=== PATIENT | female | born 1935 | race Caucasian/White ===

== ENCOUNTER 2024-10-03 15:33 | Emergency (ER) | payer MEDICARE, BC ==
--- NOTE | 2024-10-03 15:53 | ED ---
General Adult HPI - General Stated complaint: rectal issue Time Seen by Provider: 10/03/24 15:34 Source: patient, EMS, RN notes reviewed, old records reviewed Limitations: no limitations - History of Present Illness Initial comments: 89-year-old female was a transfer from outside hospital with rectal prolapse. Patient states she had been constipated for the past 5 days and noted a bulging while trying to defecate today. She had gone to the outside hospital where laboratory testing was obtained including lactic acid which was normal she had an x-ray which was reported as nonobstructive. She had continued prolapse and staff was unable to reduce and sent for further evaluation and treatment. Patient denies any symptoms other than rectal pain and bulging sensation. - Related Data Previous Rx's Medication Instructions Recorded Docusate [Colace] 100 mg PO BID #60 capsule 10/03/24 Allergies Allergy/AdvReac Type Severity Reaction Status Date / Time acetaminophen [From Brandon] Allergy Confusion Verified 10/03/24 15:57 hydrocodone [From Brandon] Allergy Confusion Verified 10/03/24 15:57 hydromorphone [From Dilaudid] Allergy Confusion Verified 10/03/24 15:57 LODINE Allergy Unknown Uncoded 10/03/24 15:57 Review of Systems ROS Statement: Those systems with pertinent positive or pertinent negative responses have been documented in the HPI. ROS Other: All systems not noted in ROS Statement are negative. General Exam General appearance: alert, in no apparent distress Head exam: Present: atraumatic, normocephalic Eye exam: Present: normal appearance, PERRL ENT exam: Present: normal exam Neck exam: Present: normal inspection. Absent: tenderness, meningismus Respiratory exam: Present: normal lung sounds bilaterally. Absent: respiratory distress, wheezes Cardiovascular Exam: Present: regular rate, normal rhythm GI/Abdominal exam: Present: soft. Absent: distended, tenderness, guarding Rectal exam: Present: other (Hyperemic rectal prolapse) Extremities exam: Present: normal inspection Neurological exam: Present: alert, oriented X3, CN II-XII intact. Absent: motor sensory deficit Psychiatric exam: Present: normal affect, normal mood Skin exam: Present: warm, dry, intact Course Vital Signs 10/03/24 15:51 Temperature 98.5 F Pulse Rate 82 Respiratory 18 Rate Blood Pressure 124/59 O2 Sat by Pulse 99 Oximetry Procedures - Rectal Disimpaction Consent Obtained: verbal consent Indication: other (Rectal prolapse) Procedural Sedation: No Sedation/Analgesia: none Complications: none Patient Tolerated Procedure: well Additional Comments: Reduction of rectal prolapse, without complication Medical Decision Making - Medical Decision Making Was pt. sent in by a medical professional or institution (FRANCISCO JAVIER Arzola, MECHANICAL MAINTENANCE TECHNICIAN, urgent care, hospital, or senior care...) When possible be specific @ -Sent from [facility] for evaluation of rectal prolapse Did you speak to anyone other than the patient for history (EMS, parent, family, police, friend...)? What history was obtained from this source @ -No Did you review nursing and triage notes (agree or disagree)? Why? @ -I reviewed and agree with nursing and triage notes Were old charts reviewed (outside hosp., previous admission, EMS record, old EKG, old radiological studies, urgent care reports/EKG's, senior care records)? Report findings @ -No old charts were reviewed Differential Diagnosis (chest pain, altered mental status, abdominal pain women, abdominal pain men, vaginal bleeding, weakness, fever, dyspnea, syncope, headache, dizziness, GI bleed, back pain, seizure, CVA, palpatations, mental health, musculoskeletal)? @ -Not applicable EKG interpreted by me (3pts min.). @ -As above X-rays interpreted by me (1pt min.). @ -None done CT interpreted by me (1pt min.). @ -None done U/S interpreted by me (1pt. min.). @ -None done What testing was considered but not performed or refused? (CT, X-rays, U/S, labs)? Why? @ -None What meds were considered but not given or refused? Why? @ -None Did you discuss the management of the patient with other professionals (professionals i.e. FRANCISCO JAVIER Arzola, MECHANICAL MAINTENANCE TECHNICIAN, lab, RT, psych nurse, social services counselor, senior energy market coordinator, teacher, police officer crime prevention, manager of case)? Give summary @ Case discussed with general surgery on-call Dr. Mc, stable for discharge with outpatient follow-up Was smoking cessation discussed for >3mins.? @ -No Was critical care preformed (if so, how long)? @ -No Were there social determinants of health that impacted care today? How? (Homelessness, low income, unemployed, alcoholism, drug addiction, transportation, low edu. Level, literacy, decrease access to med. care, [facility], rehab)? @ -No Was there de-escalation of care discussed even if they declined (Discuss DNR or withdrawal of care, Hospice)? DNR status @ -No What co-morbidities impacted this encounter? (DM, HTN, Smoking, COPD, CAD, Cancer, CVA, ARF, Chemo, Hep., AIDS, mental health diagnosis, sleep apnea, morbid obesity)? @ -None Was patient admitted / discharged? Hospital course, mention meds given and route, prescriptions, significant lab abnormalities, going to OR and other pertinent info. @89-year-old female transferred for rectal prolapse. Rectal prolapse is reduced upon arrival. Patient given enema to attempt to relieve constipation. Patient was able to have a bowel movement. She has no pain she is eager for discharge. She is given general surgery follow-up. Undiagnosed new problem with uncertain prognosis? @ -No Drug Therapy requiring intensive monitoring for toxicity (Heparin, Nitro, Insulin, Cardizem)? @ -No Were any procedures done? @ -Yes, rectal prolapse reduction. Diagnosis/symptom? @ -Rectal prolapse, reduced Acute, or Chronic, or Acute on Chronic? @ -[Acute Uncomplicated (without systemic symptoms) or Complicated (systemic symptoms)? @ -Default Side effects of treatment? @ -No Exacerbation, Progression, or Severe Exacerbation? @ -No Poses a threat to life or bodily function? How? (Chest pain, [place], [place], pneumonia, PE, COPD, DKA, ARF, appy, cholecystitis, CVA, Diverticulitis, Homicidal, Suicidal, threat to staff... and all critical care pts) @ -No Disposition Clinical Impression: Rectal prolapse Disposition: HOME SELF-CARE Condition: Good Instructions (If sedation given, give patient instructions): Rectal Prolapse (ED) Prescriptions: Docusate [Colace] 100 mg PO BID #60 capsule Is patient prescribed a controlled substance at d/c from ED?: No Referrals: Homero Cortez PAC [Primary Care Provider] - 1-2 days Rigo Mc DO [Medical Doctor] - 1-2 days Time of Disposition: 17:55
[2024-10-03 18:39] VITALS: BP 128/78; PULSE 78; RESP 15; TEMP 98
== END 2024-10-03 18:38 | disposition home or self-care (01) ==
LOC: EC 15:33
DX: K62.3 Rectal prolapse (principal); Z88.5 Allergy status to narcotic agent; Z88.6 Allergy status to analgesic agent; Z88.8 Allergy status to other drugs, medicaments and biological substances
CPT/HCPCS: 99283